=== PATIENT | male | born 1950 | race Caucasian/White ===

== ENCOUNTER 2018-03-09 11:08 | Emergency (ER) | payer BC ==
[2018-03-09 11:24] VITALS: BP 164/94
--- NOTE | 2018-03-09 11:52 | UC ---
Skin Complaint HPI - HPI Summary HPI Summary: Pt found tick attached to left upper shoulder/back. Pt removed tick this morning but is concerned about head still being attached. Pt brought insect in ziploc bag - History of Current Complaint Chief Complaint: [place] Time Seen by Provider: 03/09/18 11:44 Stated Complaint: TICK BITE Hx Obtained From: Patient Onset/Duration: Sudden Onset Skin Exposure Onset/Duration: Days Ago Timing: Constant Onset Severity: Mild Current Severity: None Pain Intensity: 0 Location: Discrete Character: Redness Aggravating Factor(s): Touch Alleviating Factor(s): Unknown Associated Signs & Symptoms: Positive: Tenderness Related History: Insect Bite/Sting - Allergy/Home Medications Allergies/Adverse Reactions: Allergies Allergy/AdvReac Type Severity Reaction Status Date / Time No Known Allergies Allergy Verified 03/09/18 11:26 Home Medications: Home Medications Aspirin [[place] Aspirin] 81 mg PO DAILY 03/09/18 [History Confirmed 03/09/18 ] Atenolol 25 mg PO EVERY OTHER DAY 03/09/18 [History Confirmed 03/09/18] Pravastatin (NF) [Pravachol (NF)] 20 mg PO DAILY 03/09/18 [History Confirmed ] Review of Systems Constitutional: Negative Skin: Other - tick bite Eyes: Negative ENT: Negative Respiratory: Negative Cardiovascular: Negative Gastrointestinal: Negative Genitourinary: Negative Motor: Negative Neurovascular: Negative Musculoskeletal: Negative Neurological: Negative Psychological: Negative Is Patient Immunocompromised?: No All Other Systems Reviewed And Are Negative: Yes PMH/Surg Hx/FS Hx/Imm Hx Previously Healthy: Yes - Surgical History Surgery Procedure, Year, and Place: HERNIA REPAIR AND PYLORIC STENOSIS - Family History Known Family History: Positive: Cardiac Disease - Social History Occupation: Retired Lives: With Family Alcohol Use: Rare Substance Use Type: None Smoking Status (MU): Never Smoked Tobacco Have You Smoked in the Last Year: No Physical Exam Triage Information Reviewed: Yes Appearance: Well-Appearing Vital Signs: Initial Vital Signs Temp 98.3 F 03/09/18 11:20 Pulse 70 03/09/18 11:20 Resp 18 03/09/18 11:20 BP 164/94 03/09/18 11:20 Pulse Ox 100 03/09/18 11:20 Vital Signs Reviewed: Yes Eye Exam: Normal ENT: Positive: Hearing grossly normal Neck exam: Normal Respiratory: Positive: No respiratory distress Musculoskeletal Exam: Normal Neurological Exam: Normal Psychological Exam: Normal Skin Exam: Other - left upper back mid scapula, pin size darkened area in dime size mild erythematous area Course/Dx - Differential Diagnoses - Skin Complaint Differential Diagnoses: Tick Born Illness, Other - tick bite head still imbedded - Diagnoses Provider Diagnoses: tick bite Discharge - Sign-Out/Discharge Documenting (check all that apply): Discharge/Admit/Transfer - Discharge Plan Condition: Stable Disposition: HOME Prescriptions: DOXYcycline CAP(*) [DOXYcycline 100MG CAP(*)] 100 mg PO Q12H #10 cap Patient Education Materials: Tick Bite (ED) Referrals: Abdulkadir Loyola DO [Primary Care Provider] - If Needed - Billing Disposition and Condition Condition: STABLE Disposition: HOME
== END 2018-03-09 12:02 | disposition home or self-care (01) ==
LOC: UCCORT 11:08
DX: S40.262A Insect bite (nonvenomous) of left shoulder, initial encounter (principal); W57.XXXA Bitten or stung by nonvenomous insect and other nonvenomous arthropods, initial encounter; Y93.9 Activity, unspecified; Y92.9 Unspecified place or not applicable
CPT/HCPCS: 99202; G0463

== ENCOUNTER 2019-07-27 07:21 | Emergency (ER) | payer BC ==
[2019-07-27 07:33] VITALS: BP 124/79
--- NOTE | 2019-07-27 07:54 | UC ---
Bite Injury/Animal HPI - HPI Summary HPI Summary: tick bite left flank area x 1 day noted this morning, was removed by his , tick is very small , no fever, no chills, no joint pain , no rash - History of Current Complaint Chief Complaint: [place] Stated Complaint: TICK Time Seen by Provider: 07/27/19 07:43 Hx Obtained From: Patient Severity Currently: Mild Severity Initially: Mild Pain Intensity: 0 Onset/Duration: Sudden Onset, Still Present Type of Bite: Wild Animal - tick Has Animal Been Immunized?: N/A Aggravating Factor(s): Nothing Alleviating Factor(s): Nothing Associated Signs And Symptoms: Negative: Fever, Erythema, Drainage, Swelling, Lymphadenopathy, Numbness/Tingling, Limited ROM Animal Available for Observation: No Animal Control Notified: No - Allergies/Home Medications Allergies/Adverse Reactions: Allergies Allergy/AdvReac Type Severity Reaction Status Date / Time No Known Allergies Allergy Verified 07/27/19 07:29 PMH/Surg Hx/FS Hx/Imm Hx Cardiovascular History: Hypertension - Surgical History Surgical History: Yes Surgery Procedure, Year, and Place: HERNIA REPAIR AND PYLORIC STENOSIS - Family History Known Family History: Positive: Cardiac Disease - Social History Alcohol Use: Rare Substance Use Type: None Smoking Status (MU): Never Smoked Tobacco Have You Smoked in the Last Year: No Review of Systems All Other Systems Reviewed And Are Negative: Yes Constitutional: Positive: Negative Skin: Positive: Negative. Negative: Rash Eyes: Positive: Negative ENT: Positive: Negative Respiratory: Positive: Negative Cardiovascular: Positive: Negative Is Patient Immunocompromised?: No Physical Exam Triage Information Reviewed: Yes Appearance: Well-Appearing, No Pain Distress Vital Signs: Initial Vital Signs Temp 97.6 F 07/27/19 07:29 Pulse 59 07/27/19 07:29 Resp 15 07/27/19 07:29 BP 124/79 07/27/19 07:29 Pulse Ox 100 07/27/19 07:29 Vital Signs Reviewed: Yes Eye Exam: Normal Eyes: Positive: Conjunctiva Clear ENT: Positive: Normal ENT inspection, Hearing grossly normal, Pharynx normal, Pharyngeal erythema Neck: Positive: Supple, Nontender, No Lymphadenopathy Respiratory: Positive: Chest non-tender, Lungs clear, Normal breath sounds Cardiovascular: Positive: RRR, No Murmur, Pulses Normal Abdominal Exam: Normal Abdomen Description: Positive: Nontender, No Organomegaly, Soft Skin: Positive: Other - tick bite left flank area, tick was removed by the pt. Bite Injury Course/Dx - Differential Dx/Diagnosis Provider Diagnosis: Tick bite of left flank Discharge ED - Sign-Out/Discharge Documenting (check all that apply): Patient Departure All imaging exams completed and their final reports reviewed: No Studies - Discharge Plan Condition: Stable Disposition: HOME Prescriptions: DOXYcycline CAP(*) [DOXYcycline 100MG CAP(*)] 200 mg PO DAILY #2 cap Patient Education Materials: Tick Bite (ED) Referrals: Abdulkadir Loyola DO [Primary Care Provider] - If Needed - Billing Disposition and Condition Condition: STABLE Disposition: Home
== END 2019-07-27 07:56 | disposition home or self-care (01) ==
LOC: UCCORT 07:21
DX: S30.861A Insect bite (nonvenomous) of abdominal wall, initial encounter (principal); I10 Essential (primary) hypertension; W57.XXXA Bitten or stung by nonvenomous insect and other nonvenomous arthropods, initial encounter; Y92.9 Unspecified place or not applicable
CPT/HCPCS: 99212; G0463